=== PATIENT | female | born 1990 | race Caucasian/White ===

== ENCOUNTER 2017-12-19 14:30 | Inpatient (IN) | payer OTHER ==
[~2017-12-19] VITALS: Ht 172.7 cm; Wt 80.7 kg
== END 2018-02-15 13:23 | DRG 775 ==
LOC: OB/GYN 02-13 05:34 → LDR 02-13 05:34 → OB/GYN 02-13 14:30
PROC: 10E0XZZ Delivery of Products of Conception, External Approach (ICD-10-PCS; principal; 2018-02-13)
PROC: 4A1HXCZ Monitoring of Products of Conception, Cardiac Rate, External Approach (ICD-10-PCS; 2018-02-13)
PROC: 3E033VJ Introduction of Other Hormone into Peripheral Vein, Percutaneous Approach (ICD-10-PCS; 2018-02-13)
DX: O80 Encounter for full-term uncomplicated delivery (principal); Z3A.40 40 weeks gestation of pregnancy; Z37.0 Single live birth

== ENCOUNTER 2023-01-19 10:43 | Outpatient (CLI) | payer OTHER | END 2023-01-19 10:44 | disposition home or self-care (01) | LOC: LAB 10:43 | DX: D27.9 Benign neoplasm of unspecified ovary (principal) ==

== ENCOUNTER 2023-01-24 10:08 | Outpatient (CLI) | payer OTHER | END 2023-01-24 10:30 | disposition home or self-care (01) | LOC: MRI 10:08 | DX: D27.9 Benign neoplasm of unspecified ovary (principal) | CPT/HCPCS: 72196 ==

== ENCOUNTER 2023-03-19 08:29 | Outpatient (CLI) | payer OTHER ==
[2023-03-19 11:05] LABS: PH,URINE 6.5 (5.0-8.0); URINE APPEARANCE Clear; URINE BILIRRUBIN Negative (NEGATIVE); URINE BLOOD Negative; URINE COLOR Yellow; URINE GLUCOSE Negative (NEGATIVE); URINE LEUKOCYTE Negative; URINE NITRATE Negative; URINE PROTEIN Negative (NEGATIVE); URINE UROBILINOGEN 0.2 E.U./dl
[2023-03-19 11:07] LABS: URINE BACTERIA 211.6 uL (0.0-1933)
[2023-03-19 11:09] LABS: INR 1.03; PROTHROMBIN TIME 10.8 SECONDS (9.0-11.5)
[2023-03-19 11:25] LABS: ALBUMIN 4.2 gm/dL (3.4-5.0); BILIRUBIN TOTAL 0.74 mg/dL (0.3-1.2); CALCIUM 9.3 mg/dL (8.5-10.1); CREATININE SERUM 0.74 mg/dL (0.55-1.02); GFR 90.95; GLOBULINA 3.9 G/DL (2.4-3.5); POTASSIUM 4.47 mEq/L (3.5-5.1); TOTAL PROTEIN 8.1 gm/dL (6.4-8.2)
[2023-03-19 11:32] LABS: URINE RBC 1.2 uL (0.0-20.8)
[2023-03-19 12:39] LABS: HEMATOCRIT 43.7 % (36.0-45.00); HEMOGLOBIN 14.4 g/dL (12.0-15.00); MEAN CELL VOLUME 90.5 fL (80.00-100.00); MEAN CORPUSCULAR HEMOGLOBIN 29.7 pg (27.00-32.0); MEAN CORPUSCULAR HGB CONC 32.9 g/dl (32.0-36.0); PLATELET COUNT 211 K/uL (150-450); RED BLOOD COUNT 4.83 M/uL (4.00-6.00); RED CELL DISTRIBUTION WIDTH 14.1 % (11.5-14.5)
== END 2023-03-19 15:00 | disposition home or self-care (01) ==
LOC: LAB 08:29
DX: Z01.812 Encounter for preprocedural laboratory examination (principal); D68.8 Other specified coagulation defects; N39.0 Urinary tract infection, site not specified

== ENCOUNTER 2023-03-19 09:28 | Outpatient (CLI) | payer OTHER | END 2023-03-19 09:35 | disposition home or self-care (01) | LOC: RAD 09:28 | DX: Z01.810 Encounter for preprocedural cardiovascular examination (principal) ==